=== PATIENT | female | born 1935 | race Caucasian/White ===

== ENCOUNTER → 2023-12-03 | Outpatient (CLI) | payer MEDICARE ==
[~2023-12-03] MED LIST: APIX2.5T PO; ATOR20TA65 PO; BALS60OI TP; BRIM5DRO5 OD; DORZ10DR19 OP; FAMO20TA8 PO; HONE44PA TP; LATA2.5D14 OD; LATANOPROST OP; LEVO250S9 PO; LEVO88TA7 PO; LIDOCAINE HCL 4% LTA SOL 4 ML VIAL TP ONE; METF-444 PO; METO25 PO; NETARSUDIL OP; SPIR25TA6 PO
== END | disposition home or self-care (01) ==
LOC: WHH 08:20
PROVIDERS: ATTEND Nurse Practitioner Family
DX: L89.323 Pressure ulcer of left buttock, stage 3 (principal); L89.223 Pressure ulcer of left hip, stage 3; L89.153 Pressure ulcer of sacral region, stage 3; L89.890 Pressure ulcer of other site, unstageable; S51.012A Laceration without foreign body of left elbow, initial encounter; K21.9 Gastro-esophageal reflux disease without esophagitis; E78.00 Pure hypercholesterolemia, unspecified; E03.9 Hypothyroidism, unspecified; M81.0 Age-related osteoporosis without current pathological fracture; I48.91 Unspecified atrial fibrillation; Z93.1 Gastrostomy status; Z90.49 Acquired absence of other specified parts of digestive tract; Z98.41 Cataract extraction status, right eye; Z79.84 Long term (current) use of oral hypoglycemic drugs; Z79.899 Other long term (current) drug therapy; X58.XXXA Exposure to other specified factors, initial encounter; Y93.89 Activity, other specified; Y92.89 Other specified places as the place of occurrence of the external cause; Y99.8 Other external cause status
CPT/HCPCS: G0463; A6197; A4450